=== PATIENT | female | born 1955 | race Asian ===

== ENCOUNTER 2018-01-29 07:38 | Inpatient (IN) | payer SELFPAY ==
[~2018-01-29] VITALS: Ht 152.4 cm; Wt 52.9 kg
--- NOTE | 2018-01-29 07:50 | NUR ---
HESHAM PEREZ at the bedside for MSE.
[2018-01-29] MEDS ORDERED: TDAP DIPH,PERTUSS,TET VAC/PF 0.5 ML DISP.SYRIN IM ONE ×2 (08:00→08:28)
--- NOTE | 2018-01-29 08:05 | NUR ---
Fredy RN(Nee) translat for pt. Pt c/o neck pain, but does not want to have medication for pain.
[2018-01-29 08:22] LABS: BASOPHILS # (AUTO) 0.1 K/uL (0.0-8.0); BASOPHILS % (AUTO) 1.2 % (0.0-2.0); EOSINOPHILS # (AUTO) 0.2 K/uL (0.0-0.7); EOSINOPHILS % (AUTO) 5.1 % (0.0-7.0); HEMOGLOBIN 12.9 g/dL (10.9-14.3); LYMPHOCYTES # (AUTO) 1.6 K/uL (20.0-40.0); LYMPHOCYTES % (AUTO) 33.4 % (20.5-51.5); MEAN CORPUSCULAR HGB CONC 34 g/dL (32.3-35.6); MEAN CORPUSCULAR VOLUME 94.3 fL (75.5-95.3); MONOCYTES # (AUTO) 0.4 K/uL (2.0-10.0); NEUTROPHILS # (AUTO) 2.5 K/uL (1.8-8.9); NEUTROPHILS % (AUTO) 51.3 % (38.5-71.5); PLATELET COUNT (AUTO) 295 K/uL (179-408); RED BLOOD CELL COUNT(AUTO) 4.03 MIL/uL (3.63-4.92); WHITE BLOOD COUNT (AUTO) 4.8 K/uL (3.8-11.8)
[2018-01-29 08:24] LABS: CREATININE 0.7 mg/dL (0.6-1.3); POTASSIUM 3.7 mmol/L (3.5-5.1)
[2018-01-29 08:30] LABS: BILIRUBIN,DIRECT 0.1 mg/dL (0.0-0.2); BILIRUBIN,TOTAL 0.5 mg/dL (0.2-1.0); TOTAL PROTEIN, SERUM 7.7 g/dL (6.4-8.2)
[2018-01-29] MEDS ORDERED: LIDOCAINE 1%-EPI 1:100,000 20 ML VIAL TP ONE (09:45)
[2018-01-29 10:25] VITALS: BP 143/75
--- NOTE | 2018-01-29 10:25 | NUR ---
PATIENT ADM FROM ER TO ROOM 218 AWAKE ALERT COOPERATE WELL NO SOB OR DIZZINESS OR PAIN VS TAKEN STABLE ON FALL PRECAUTION BED ALARM ON AND CALL LIGHT IN REACH AND INSTRUCTION TO USE WHEN NEED
[2018-01-29] MEDS ORDERED: ONDANSETRON 4 MG/2 ML VIAL IV PRN (11:30)
[2018-01-29] MEDS ORDERED: ACETAMINOPHEN 325 MG TABLET PO PRN (11:30)
[2018-01-29] MEDS ORDERED: MECLIZINE HCL 25 MG TABLET PO PRN (11:30)
[2018-01-29] MEDS: ASPIRIN EC 81 MG TABLET.DR PO SCH (11:55)
[2018-01-29] MEDS: PANTOPRAZOLE SODIUM 40 MG TABLET.DR PO SCH (11:55)
--- NOTE | 2018-01-29 12:30 | NUR ---
ECCHO CARDIOGRAM AT BEDSIDE PEGGY PROCEDURE WELL PO FLD PEGGY MOD AMT C/O OF DISCOMFORT PAIN AT RT SIDE OF NECK ICE PK APPLY
[2018-01-29] MEDS ORDERED: HYDROCODONE/APAP 5-325MG TABLET PO PRN (13:30)
--- NOTE | 2018-01-29 14:00 | NUR ---
DR DUBON SEEN PATIENT THIS AFTERNOON AND NEW ORDER IN CHART
[2018-01-29] MEDS: IV NS 1000 ML 1,000 ML IV PRN (15:00)
[2018-01-29 15:46] VITALS: BP 113/54
--- NOTE | 2018-01-29 16:00 | NUR ---
FINGER WAVER FOR DR IRIS JANE,A SEEN PATIENT THIS AFTERNOON NO NEW ORDER
--- NOTE | 2018-01-29 17:20 | NUR ---
STABLE HEMODYNAMIC STATUS NO DIZZINESS OR PAIN SAFETY MEASURE PROVIDED CALL LIGHT IN REACH AND BED ALARM ON
[2018-01-29 18:50] LABS: *BILIRUBIN,URIN NEGATIVE (NEGATIVE); *BLOOD, URINE Trace-intact (NEGATIVE); *CLARITY,URINE SLIGHTLY CLOUDY (CLEAR); *COLOR,URINE YELLOW (YELLOW); *KETONES,URINE NEGATIVE (NEGATIVE); *PROTEIN,URINE NEGATIVE (NEGATIVE); *UROBILINOGEN,URINE 0.2 E.U./dl (NORMAL); LEUKOCYTE ESTERASE ,URINE NEGATIVE (NEGATIVE); NITRITE, URINE NEGATIVE (NEGATIVE); UGLUCOSE NEGATIVE (NEGATIVE)
[2018-01-29 19:14] LABS: BACTERIA,URINE NONE SEEN /HPF (NONE SEEN); RBC,URINE 0-3 /HPF (0-3); SQUAMOUS EPITHELIAL CELL,UR FEW /HPF (NONE SEEN); WBC,URINE 0-3 /HPF (0-3)
--- NOTE | 2018-01-29 19:20 | NUR ---
Received patient lying in bed. AAOX4. In no acute distress. VS WNL. O2 sat at 95% on RA. NSR on tele at 87/min. IV site on left AC intact and patent. IVF fluids infusing. Denies any pain or SOB. Needs assessed and attended to. Safety measure initiated and call matta within reach.
[2018-01-29 20:13] VITALS: BP 126/58
--- NOTE | 2018-01-29 21:07 | NUR ---
Received patient lying in bed. AAOX4. In no acute distress. VS WNL. On O2 at 3LPM via NC in place. O2 sat at 97% NSR on tele at 73/min. AV shunt on right internal jugular vein intact. Central line on right femoral area intact and patent. Denies any pain or SOB. Needs assessed and attended to. Safety measure initiated and call matta within reach. Addendum: 01/29/18 at 2102 by ANIA RAIN RN wrong patient
[2018-01-30 00:37] VITALS: BP 100/47
[2018-01-30] MEDS: IV NS 1000 ML 1,000 ML IV PRN (02:36)
[2018-01-30 04:00] VITALS: BP 122/59
--- NOTE | 2018-01-30 05:52 | NUR ---
Patient refused blood draw.
[2018-01-30] MEDS: PANTOPRAZOLE SODIUM 40 MG TABLET.DR PO SCH (06:28)
--- NOTE | 2018-01-30 06:33 | NUR ---
AAOX4. In no acute distress. VS WNL. O2 sat at 96% on RA. NSR on tele at 87/min. IV site on left AC intact and patent. IVF fluids infusing. Mild pain on neck area, ice compress provided. Decline pain medication. Needs assessed and attended to. Safety measure maintained and call matta within reach.
--- NOTE | 2018-01-30 08:00 | NUR ---
AWAKE ALERT AND NO SS CONFUSION, PAIN OR DISTRESS. SR ON MONITOR
[2018-01-30] MEDS: ASPIRIN EC 81 MG TABLET.DR PO SCH (08:31)
[2018-01-30 11:45] VITALS: BP 147/75
[2018-01-30] MEDS ORDERED: HYDR-3326 PO (13:51)
[2018-01-30] MEDS ORDERED: MECL-102 PO (13:51)
--- NOTE | 2018-01-30 14:00 | NUR ---
SEEN BY ARTURO SHARMA WITH DC ORDER.
--- NOTE | 2018-01-30 15:38 | NUR ---
HOME MEDS AND FOLLOW-UP INSTRUCTION GIVEN TO PATIENT. WILL GO HOME WITH FRIEND PER ACID CUTTER
[2018-01-30 16:22] VITALS: BP 129/67
== END 2018-01-30 16:00 | disposition home or self-care (01) | DRG 312 ==
LOC: ER 07:43 → TELE 09:49
PROVIDERS: ADMIT Internal Medicine; ATTEND Internal Medicine
PROC: 0HQ0XZZ Repair Scalp Skin, External Approach (ICD-10-PCS; principal; 2018-01-29)
DX: I95.1 Orthostatic hypotension (principal); S01.01XA Laceration without foreign body of scalp, initial encounter; W18.39XA Other fall on same level, initial encounter; Y93.01 Activity, walking, marching and hiking; Y92.013 Bedroom of single-family (private) house as the place of occurrence of the external cause; M50.322 Other cervical disc degeneration at C5-C6 level; M12.88 Other specific arthropathies, not elsewhere classified, other specified site; K21.9 Gastro-esophageal reflux disease without esophagitis; F41.9 Anxiety disorder, unspecified; I08.1 Rheumatic disorders of both mitral and tricuspid valves
CPT/HCPCS: 36415; 70030-TC; 70450; 71045; 72125; 85025; 87086; 90715; 93005; 93307; A4217; A4663; G0378; J3490; J7030; L8699

== ENCOUNTER 2018-02-11 18:26 | Emergency (ER) | payer SELFPAY ==
[~2018-02-11] VITALS: Ht 152.4 cm; Wt 49.9 kg
[~2018-02-11 18:26] MED LIST: HYDR-3326 PO; MECL-102 PO
--- NOTE | 2018-02-11 19:26 | NUR ---
Patient discharged to home in stable conditon. Written and verbal after care instructions given. Patient verbalizes understanding of instructions.
[2018-02-11 19:27] VITALS: BP 124/66
== END 2018-02-11 19:27 | disposition home or self-care (01) ==
LOC: ER 18:27
DX: S01.01XD Laceration without foreign body of scalp, subsequent encounter (principal); L30.9 Dermatitis, unspecified; Z48.02 Encounter for removal of sutures; K21.9 Gastro-esophageal reflux disease without esophagitis; X58.XXXD Exposure to other specified factors, subsequent encounter
CPT/HCPCS: A4663

== ENCOUNTER 2018-11-27 18:20 | Emergency (ER) | payer MEDICAID ==
[~2018-11-27] VITALS: Ht 152.4 cm; Wt 55.8 kg
--- NOTE | 2018-11-27 19:03 | NUR ---
PT IS IN ROOM #2A. DR MENDOZA EVALUATED THE PT.
[2018-11-27] MEDS ORDERED: TDAP DIPH,PERTUSS,TET VAC/PF 0.5 ML DISP.SYRIN IM ONE (19:15)
[2018-11-27 19:31] VITALS: BP 144/80
--- NOTE | 2018-11-27 19:32 | NUR ---
Patient discharged to home in stable conditon. Written and verbal after care instructions given. Patient verbalizes understanding of instructions. PATIENT LEFT WITH STABLE GAIT.
== END 2018-11-27 19:33 | disposition home or self-care (01) ==
LOC: ER 18:24
DX: Z23 Encounter for immunization (principal); K21.9 Gastro-esophageal reflux disease without esophagitis; Z79.899 Other long term (current) drug therapy
CPT/HCPCS: 90715; A4663

== ENCOUNTER 2021-09-02 18:30 | Emergency (ER) | payer MEDICAID ==
[~2021-09-02] VITALS: Ht 152.4 cm; Wt 54.4 kg
[~2021-09-02 18:30] MED LIST changes: -MECL-102 PO; +MECL-159 PO
--- NOTE | 2021-09-02 18:40 | NUR ---
Patient ambulatory, alert and orientedx4 complaints of left 5th toe pain with history of injury yesterday. Brusing noted on the base of left 5th toe no active bleeding/open wound noted. Vitals stable.
--- NOTE | 2021-09-02 18:44 | NUR ---
MD at bedside, medical screening exam in progress.
[2021-09-02] MEDS ORDERED: OXYC-128 PO (19:04)
--- NOTE | 2021-09-02 19:17 | NUR ---
Patient discharged to home in stable condition. Written and verbal after care instructions given. Patient verbalizes understanding of instructions. Stressed follow up or return to ER for worsening s/s. pt ambulated with steady gait. deines pain. no SOB. no chest pain. AOx4
[2021-09-02 19:18] VITALS: BP 132/85
== END 2021-09-02 19:18 | disposition home or self-care (01) ==
LOC: ER 18:32
DX: S90.32XA Contusion of left foot, initial encounter (principal); W20.8XXA Other cause of strike by thrown, projected or falling object, initial encounter; Y92.89 Other specified places as the place of occurrence of the external cause
CPT/HCPCS: 73660; A4663